=== PATIENT | female | born 1970 | race Caucasian/White ===

== ENCOUNTER 2019-05-26 09:41 | Emergency (ER) | payer BC, OTHER ==
[2019-05-26 09:55] VITALS: BP 161/87; PULSE 96; TEMP 97.9; BMI 24.7
[2019-05-26] MEDS ORDERED: ACETAMINOPHEN 325 MG TABLET (FP) PO ONE (10:25)
[2019-05-26] MEDS ORDERED: ACETAMINOPHEN 325 MG TABLET (FP) ONE (10:29)
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
== END 2019-05-26 11:36 | disposition home or self-care (01) ==
LOC: JERFT 09:41
DX: S00.03XA Contusion of scalp, initial encounter (principal); M25.512 Pain in left shoulder; Y04.2XXA Assault by strike against or bumped into by another person, initial encounter; Y93.89 Activity, other specified; Y92.238 Other place in hospital as the place of occurrence of the external cause; Y99.0 Civilian activity done for income or pay; Y07.59 Other non-family member, perpetrator of maltreatment and neglect
CPT/HCPCS: 70450-TC; 99284-25

== ENCOUNTER 2023-04-17 04:31 | Day surgery (SDC) | payer BC ==
[2023-04-08 13:33] VITALS: BMI 24.0
[2023-04-17] MEDS ORDERED: LIDOCAINE HCL 1%, 10 MG/ML (20ML VIAL) ONE (12:13)
[2023-04-17] MEDS ORDERED: BUPIVACAINE HCL/PF 0.5% (5MG/ML) 10 ML VIAL ONE (12:13)
[2023-04-17] MEDS ORDERED: MIDAZOLAM HCL 2 MG/2 ML SINGLE DOSE VIAL ONE (12:55)
[2023-04-17] MEDS ORDERED: PROPOFOL 40 ML ONE (12:55)
[2023-04-17] MEDS ORDERED: SUCCINYLCHOLINE CHLORIDE 200 MG/10 ML SYRINGE ONE (12:55)
[2023-04-17] MEDS ORDERED: ceFAZolin SODIUM 1 GM VIAL IVPB ONE (13:08)
[2023-04-17] MEDS ORDERED: LIDOCAINE 1% P/F 10 MG/ML VIAL INF ONE (13:25)
[2023-04-17] MEDS ORDERED: BUPIVACAINE HCL/PF 0.5% (5MG/ML) 10 ML VIAL IJ ONE (15:53)
[2023-04-17] MEDS ORDERED: METOPROLOL TARTRATE 5 MG/5 ML VIAL ONE (16:01)
[2023-04-17] MEDS ORDERED: PROMETHAZINE HCL 25 MG/1 ML VIAL IVPB PRN (16:13)
[2023-04-17] MEDS ORDERED: oxyCODONE HCL 5 MG TABLET PO PRN (16:13)
[2023-04-17] MEDS ORDERED: ONDANSETRON 4 MG/2 ML VIAL IVPUSH PRN (16:13)
[2023-04-17] MEDS ORDERED: LACTATED RINGERS SOLUTION 1,000 ML IV SCH (16:15)
[2023-04-17] MEDS ORDERED: ONDANSETRON 4 MG/2 ML VIAL ONE (17:38)
[2023-04-17] MEDS ORDERED: oxyCODONE HCL 5 MG TABLET ONE (17:38)
[2023-04-17 17:53] VITALS: RESP 20; TEMP 97
[2023-04-17 19:02] VITALS: BP 130/72; PULSE 70
== END 2023-04-17 18:37 | disposition home or self-care (01) ==
LOC: JASU-SURG 04:31
PROVIDERS: ATTEND Podiatrist Foot Surgery
PROC: 0QBN0ZZ Excision of Right Metatarsal, Open Approach (ICD-10-PCS; 2023-04-17)
PROC: 0QSN04Z Reposition Right Metatarsal with Internal Fixation Device, Open Approach (ICD-10-PCS; 2023-04-17)
PROC: 0SGK04Z Fusion of Right Tarsometatarsal Joint with Internal Fixation Device, Open Approach (ICD-10-PCS; principal; 2023-04-17 13:00)
DX: M20.11 Hallux valgus (acquired), right foot (principal)
CPT/HCPCS: 28292; 28740; C1713; 73630-TC-RT-FY; 88305-TC; 88311-TC; 94760; C1889